=== PATIENT | male | born 1970 | race Caucasian/White ===

== ENCOUNTER 2017-03-16 14:31 | Emergency (ER) | payer OTHER, MEDICAID ==
[2017-03-16 15:02] VITALS: BP 165/99
--- NOTE | 2017-03-16 16:27 | XRAY Preliminary Report ---
Exam: XR Elbow 3 View LT IMPRESSION: Normal elbow radiography. [facility] SITE ID: [id number]
--- NOTE | 2017-03-16 16:30 | XRAY Report ---
EXAM: LEFT ELBOW RADIOGRAPHY EXAM DATE: 03/16/2017 04:19 PM. CLINICAL HISTORY: Suspected left biceps tendon rupture. COMPARISON: None. TECHNIQUE: 3 views. FINDINGS: Bones: Normal. No fractures or bone lesions. Joints: Normal. No effusion. No subluxation. Soft Tissues: Normal. No soft tissue swelling. IMPRESSION: Normal elbow radiography. [facility] Referring Provider Line: [phone] SITE ID: [id number]
--- NOTE | 2017-03-16 16:38 | ED Physician Documentation ---
PD HPI UPPER EXT INJURY - Stated complaint Stated Complaint: LT ARM INJURY - Chief complaint Chief Complaint: Ext Problem - History obtained from History obtained from: Patient - History of Present Illness Location: Left, Arm Type of injury: Other (Lifting) Where injury occurred: Work Timing - onset: Today Timing - details: Abrupt onset Associated symptoms: No: Weakness, Numbness Similar symptoms before: Diagnosis (Past medical history is significant for right biceps tendon rupture and history of right patellar tendon rupture.) - Additonal information Additional information: The patient is a 46-year-old male who presents with discomfort in his left arm. He was lifting a heavy dust bin at work when he felt a pop in his left arm, and has had discomfort since that time, as well as a bulge in his proximal biceps muscle. He is concerned about biceps tendon rupture. His past history is significant for right biceps tendon rupture as well as right patellar tendon rupture. He denies the use of steroid medication, or any recent antibiotic therapy. Review of Systems Constitutional: denies: Fever Nose: denies: Congestion Respiratory: denies: Dyspnea, Cough GI: denies: Nausea, Vomiting Skin: denies: Rash Musculoskeletal: reports: Extremity pain (Left upper extremity.). denies: Neck pain, Back pain Neurologic: denies: Focal weakness, Numbness, Headache PD PAST MEDICAL HISTORY - Past Medical History Past Medical History: Yes Cardiovascular: High cholesterol Neuro: Head injury Endocrine/Autoimmune: None Psych: Anxiety Musculoskeletal: Other (Right biceps tendon rupture, and right patellar tendon rupture.) - Past Surgical History Past Surgical History: Yes Ortho: Shoulder arthroplasty, Other - Present Medications Home Medications: Ambulatory Orders Medication Instructions Recorded Confirmed HYDROcod/ACETAM 5/325 [Vicodin 1 - 2 ea PO Q6H PRN #20 tablet 03/16/17 5/325] Ibuprofen [Advil] 600 mg PO PRN PRN 03/16/17 03/16/17 Mometasone/Formoterol [Dulera 100 PRN PRN 03/16/17 Mcg/5 Mcg Inhaler] - Allergies Allergies/Adverse Reactions: Allergies Allergy/AdvReac Type Severity Reaction Status Date / Time No Known Drug Allergies Allergy Verified 07/01/14 17:07 - Social History Does the pt smoke?: No Smoking Status: Never smoker Does the pt drink ETOH?: Yes Does the pt have substance abuse?: No - Immunizations Immunizations are current?: Yes - POLST Patient has POLST: No PD ED PE NORMAL - Vitals Vital signs reviewed: Yes (initially hypertensive) - General General: Alert and oriented X 3, Well developed/nourished - HEENT HEENT: Atraumatic - Neck Neck: No bony TTP - Cardiac Cardiac: RRR - Respiratory Respiratory: No respiratory distress - Back Back: No spinal TTP - Derm Derm: No rash - Extremities Extremities: Other (There is proximal displacement of the left biceps muscle bulge, with mild tenderness to palpation of the distal biceps tendon insertion site. He has full range of motion of the left elbow and shoulder. Distal neurovascular is intact.) - Neuro Neuro: Alert and oriented X 3, No motor deficit, No sensory deficit Results - Vitals Vitals: Oxygen O2 Source Room air - Rads (name of study) Left elbow Radiology: Prelim report reviewed, EMP read contemporaneously, See rad report ( Normal elbow radiography.) PD MEDICAL DECISION MAKING - ED course Complexity details: considered differential, d/w patient, d/w senior staff consultant ED course: The patient's presentation is most consistent with a left distal biceps tendon rupture. It is not clear from physical examination whether it is a complete or partial tendon rupture. X-ray reveals no bony abnormality. MRI was not able to be obtained at this late hour on Sunday afternoon. I discussed his condition with Dr. Hernandez, product safety professional for orthopedic surgery. He advises placement of a posterior splint and arrangement for outpatient MRI prior to follow up visit in the orthopedic clinic. Treatment in the emergency department included administration of ibuprofen 800 mg orally. A posterior fiberglass splint was applied, as well as an arm sling. He is being discharged with prescription for Vicodin, 20 tablets. An order form for MRI of the left elbow was completed. I discussed with the patient the importance of the imaging study, urgent follow-up in the orthopedic clinic, as well as potentially worrisome signs or symptoms that should prompt reevaluation in the emergency department. A labor and industries form was completed. Departure - Departure Disposition: 01 Home, Self Care Clinical Impression: Biceps tendon rupture Qualifiers: Encounter type: initial encounter Laterality: left Qualified Code(s): S46.112A - Strain of muscle, fascia and tendon of long head of biceps, left arm, initial encounter Condition: Stable Instructions: Biceps Tendonitis Distal Follow-Up: [facility] [Provider Group] Prescriptions: HYDROcod/ACETAM 5/325 [Vicodin 5/325] 1 - 2 ea PO Q6H PRN #20 tablet PRN Reason: Pain Comments: Keep the splint clean and dry. Use the arm sling for comfort. You can use ibuprofen, up to 800 mg 3 times daily for its anti-inflammatory effect. You can use Vicodin as prescribed if needed for pain. Followup for MRI of your elbow and distal humerus on Sunday. Followup with orthopedics after the MRI has been performed. Return to the emergency department if you develop markedly increasing pain, or otherwise worsening symptoms. Discharge Date/Time: 03/16/17 18:02
[2017-03-16] MEDS ORDERED: IBUPROFEN 800 MG TABLET PO ONE (17:43)
[2017-03-16] MEDS: IBUPROFEN 800 MG TABLET PO STA (17:45)
== END 2017-03-16 18:02 | disposition home or self-care (01) ==
LOC: ED 14:31
DX: S46.212A Strain of muscle, fascia and tendon of other parts of biceps, left arm, initial encounter (principal); X50.0XXA Overexertion from strenuous movement or load, initial encounter; Y99.0 Civilian activity done for income or pay; E78.00 Pure hypercholesterolemia, unspecified
CPT/HCPCS: 1040M; 29105; 99282; 99283

== ENCOUNTER 2017-11-05 16:50 | Outpatient (CLI) | payer MEDICAID | END 2017-11-05 16:51 | disposition home or self-care (01) | LOC: RT.S 16:50 | PROVIDERS: ATTEND Nurse Practitioner Family | DX: R07.9 Chest pain, unspecified (principal) | CPT/HCPCS: 93005 ==

== ENCOUNTER 2017-11-07 13:13 | Outpatient (CLI) | payer MEDICAID ==
[2017-11-07 17:45] LABS: BASOPHILS % (AUTO) 0.7 %; EOSINOPHILS # (AUTO) 0.1 10^3/uL (0.0-0.7); EOSINOPHILS % (AUTO) 1.7 %; HGB - HEMOGLOBIN 14.3 g/dL (14.0-18.0); LYMPHOCYTES % (AUTO) 32.2 %; MEAN CORPUSCULAR HEMOGLOBIN 29.3 pg (27.0-31.0); MEAN CORPUSCULAR HGB CONC 34.8 g/dL (32.0-36.0); MEAN CORPUSCULAR VOLUME 84.4 fL (80.0-94.0); MEAN PLATELET VOLUME 8.7 fL (7.4-11.4); MONOCYTES # (AUTO) 0.5 10^3/uL (0.0-1.0); MONOCYTES % (AUTO) 8.2 %; NEUTROPHILS # (AUTO) 3.6 10^3/uL (1.5-6.6); NEUTROPHILS % (AUTO) 57.2 %; PLT - PLATELET COUNT 299 10^3/uL (130-450); RED BLOOD COUNT 4.88 10^6/uL (4.70-6.10); RED CELL DISTRIBUTION WIDTH 14.1 % (12.0-15.0); WHITE BLOOD COUNT 6.3 x10^3/uL (4.8-10.8)
[2017-11-07 18:10] LABS: ALBUMIN 4.7 g/dL (3.2-5.5); ALBUMIN/GLOBULIN RATIO 1.4 (1.0-2.2); ALKALINE PHOSPHATASE 51 IU/L (42-121); ALT ALANINE AMINOTRANSFERASE 28 IU/L (10-60); AST ASPARTATE AMINOTRANSFERASE 25 IU/L (10-42); BILIRUBIN,TOTAL 0.5 mg/dL (0.2-1.0); BUN - BLOOD UREA NITROGEN 13 mg/dL (6-20); CALCIUM 9.7 mg/dL (8.5-10.3); CARBON DIOXIDE - CO2 25 mmol/L (21-32); CHLORIDE 100 mmol/L (101-111); CHOL/HDL RATIO 7.1 (<5.0); CHOLESTEROL 320 mg/dL; CREATININE 1.1 mg/dL (0.6-1.2); GFR - MDRD 71 (>89); GLUCOSE 99 mg/dL (70-100); HDL CHOLESTEROL 45 mg/dL; SODIUM 136 mmol/L (135-145)
[2017-11-07 18:31] LABS: LDL CHOLESTEROL,DIRECT 200 mg/dL; LDLD/HDL RATIO 4.4 (<3.6)
== END 2017-11-07 13:14 | disposition home or self-care (01) ==
LOC: LAB.F 13:13
PROVIDERS: ATTEND Nurse Practitioner Family
DX: R07.9 Chest pain, unspecified (principal); E78.5 Hyperlipidemia, unspecified; R53.83 Other fatigue
CPT/HCPCS: 36415; 80053; 80061; 83721; 83880; 84443; 85025

== ENCOUNTER 2018-05-01 11:41 | Outpatient (CLI) | payer MEDICAID ==
--- NOTE | 2018-05-01 13:24 | XRAY Report ---
Procedure Date: 05/01/2018 Accession Number: [id number] / [id number] Procedure: XRS - Hand 3 View RT CPT Code: FULL RESULT: EXAM: Hand 3 View RT DATE: 05/01/2018 12:16 PM CLINICAL HISTORY: THUMB PAIN, RIGHT HAND COMPARISON: None. TECHNIQUE: 3 views. FINDINGS: Bones: Normal. No fractures or bone lesions. Joints: Normal. No subluxations. Soft Tissues: Normal. No soft tissue swelling. IMPRESSION: Normal hand radiography. [facility]
== END 2018-05-01 11:42 | disposition home or self-care (01) ==
LOC: DI.S 11:41
PROVIDERS: ATTEND Nurse Practitioner Family
DX: M79.644 Pain in right finger(s) (principal)

== ENCOUNTER 2019-05-29 11:16 | Emergency (ER) | payer MEDICAID ==
--- NOTE | 2019-05-29 12:21 | XRAY Report ---
Reason: pain Procedure Date: 05/29/2019 Accession Number: [id number] / [id number] Procedure: XR - Chest 1 View X-Ray CPT Code: 18339 FULL RESULT: EXAM: CHEST RADIOGRAPHY, ONE VIEW, PORTABLE EXAM DATE: 05/29/2019 12:08 PM. CLINICAL HISTORY: Chest pain, with shortness of breath for 2 weeks, in a 48-year-old male. COMPARISON: None. TECHNIQUE: 1201 hr. AP upright portable view. FINDINGS: Lungs/Pleura: No focal opacities evident. No pleural effusion. No pneumothorax. Satisfactory inspiratory effort. Mediastinum: Heart size normal, without pulmonary vascular congestion or adenopathy. Other: Trachea is midline. Osseous structures are unremarkable. IMPRESSION: Unremarkable chest for age and body size. No CHF or other demonstrated cause for the patient's symptoms. [facility]
[2019-05-29] MEDS ORDERED: ASPIRIN CHEW 81 MG TABLET PO STA (12:36)
[2019-05-29] MEDS ORDERED: METOPROLOL TARTRATE 50 MG TABLET PO STA ×2 (12:36→16:02)
[2019-05-29] MEDS ORDERED: ATORVASTATIN 40 MG TABLET PO STA (12:36)
--- NOTE | 2019-05-29 12:38 | ED Physician Documentation ---
PD HPI CHEST PAIN - Stated complaint Stated Complaint: CP - Chief complaint Chief Complaint: Cardiac - History obtained from History obtained from: Patient - History of Present Illness Timing - onset: Other (48-year-old gentleman with no known history of coronary disease but risk factors including modest obesity and cholesterol which he has said was in the 700s in the past. He was on a statin but stopped due to side effects. Over the last 10 days or so he has had central chest burning that radiates is a dull ache to either side especially with almost any level of exertion even walking on flat ground. At rest it and it ends in a few minutes. When he has it he occasionally gets dizzy and slightly sweaty. No nausea.) Review of Systems Ten Systems: 10 systems reviewed and negative Constitutional: denies: Fever, Chills Throat: denies: Dental pain / toothache, Sore throat Cardiac: reports: Chest pain / pressure. denies: Palpitations, Pedal edema, Calf pain Respiratory: denies: Dyspnea, Cough, Hemoptysis, Wheezing PD PAST MEDICAL HISTORY - Past Medical History Cardiovascular: High cholesterol Endocrine/Autoimmune: None Psych: Anxiety Musculoskeletal: Other - Past Surgical History Past Surgical History: Yes Ortho: Shoulder arthroplasty, Other - Present Medications Home Medications: Ambulatory Orders Medication Instructions Recorded Confirmed HYDROcod/ACETAM 5/325 [Vicodin 1 - 2 ea PO Q6H PRN #20 tablet 03/16/17 5/325] Ibuprofen [Advil] 600 mg PO PRN PRN 03/16/17 03/16/17 Mometasone/Formoterol [Dulera 100 PRN PRN 03/16/17 Mcg/5 Mcg Inhaler] - Allergies Allergies/Adverse Reactions: Allergies Allergy/AdvReac Type Severity Reaction Status Date / Time No Known Drug Allergies Allergy Verified 07/01/14 17:07 - Social History Does the pt smoke?: No Smoking Status: Never smoker Does the pt drink ETOH?: Yes Does the pt have substance abuse?: No - Family History Family history: reports: CAD (Some second-degree family members with coronary disease, it does not sound like anything terribly early. His recollection of this is not great.) - Immunizations Immunizations are current?: Yes - POLST Patient has POLST: No PD ED PE NORMAL - Vitals Vital signs reviewed: Yes - General General: Alert and oriented X 3, No acute distress - HEENT HEENT: PERRL, EOMI - Neck Neck: Supple, no meningeal sign, No bony TTP - Cardiac Cardiac: RRR, No murmur - Respiratory Respiratory: No respiratory distress, Clear bilaterally - Abdomen Abdomen: Soft, Non tender - Back Back: No CVA TTP, No spinal TTP - Derm Derm: Normal color, Warm and dry - Extremities Extremities: No edema, No calf tenderness / cord - Neuro Neuro: Alert and oriented X 3, Normal speech Results - Vitals Vitals: Vital Signs - 24 hr 05/29/19 05/29/19 05/29/19 11:32 13:38 16:09 Temperature 36.3 C L Heart Rate 87 65 64 Respiratory 20 16 12 Rate Blood Pressure 142/76 H 129/78 164/91 H O2 Saturation 96 98 99 05/29/19 18:09 Temperature Heart Rate 60 Respiratory 12 Rate Blood Pressure 145/99 H O2 Saturation 97 Oxygen O2 Source Room air - EKG (time done) 1135 Rate: Rate (enter#) (80) Rhythm: NSR Haworth: Normal QRS: Low voltage Ischemia: Non specific changes. No: ST elevation c/w ischemia, ST depression Computer interpretation: Agree with computer - Labs Labs: Laboratory Tests 05/29/19 05/29/19 05/29/19 12:42 12:42 12:42 WBC 7.9 RBC 4.79 Hgb 14.4 Hct 42.1 MCV 87.9 MCH 30.1 MCHC 34.2 RDW 13.2 Plt Count 259 MPV 9.6 Neut # (Auto) 5.2 Lymph # (Auto) 1.9 [place] # (Auto) 0.6 Eos # (Auto) 0.1 Baso # (Auto) 0.1 Absolute Nucleated RBC 0.00 Nucleated RBC % 0.0 Sodium 137 Potassium 3.9 Chloride 100 L Carbon Dioxide 26 Anion Gap 11.0 BUN 19 Creatinine 1.1 Estimated GFR (MDRD) 71 L Glucose 102 H Calcium 9.9 Total Bilirubin 0.6 AST 37 ALT 52 Alkaline Phosphatase 57 Troponin I High Sens Total Protein 7.9 Albumin 4.4 Globulin 3.5 Albumin/Globulin Ratio 1.3 Triglycerides 967 H Cholesterol 340 H LDL Cholesterol Direct 138 H LDL Cholesterol, Calc Not Reportable VLDL Cholesterol Not Reportable HDL Cholesterol 44 L LDL/HDL Ratio Not Reportable dLDL/HDL Ratio 3.1 Cholesterol/HDL Ratio 7.7 Lipase 36 05/29/19 12:42 WBC RBC Hgb Hct MCV MCH MCHC RDW Plt Count MPV Neut # (Auto) Lymph # (Auto) [place] # (Auto) Eos # (Auto) Baso # (Auto) Absolute Nucleated RBC Nucleated RBC % Sodium Potassium Chloride Carbon Dioxide Anion Gap BUN Creatinine Estimated GFR (MDRD) Glucose Calcium Total Bilirubin AST ALT Alkaline Phosphatase Troponin I High Sens 3.9 Total Protein Albumin Globulin Albumin/Globulin Ratio Triglycerides Cholesterol LDL Cholesterol Direct LDL Cholesterol, Calc VLDL Cholesterol HDL Cholesterol LDL/HDL Ratio dLDL/HDL Ratio Cholesterol/HDL Ratio Lipase PD MEDICAL DECISION MAKING - ED course ED course: 48-year-old gentleman with new and typical angina. This is quite concerning. His EKG is nonischemic and his initial troponin was negative. I spoke with Dr. Connor who took him for stress. She notes that on exercise stress test he only made about a minute on exercise before he developed angina and she was quite concerned because he dropped his blood pressure during stress which is an atypical response suggesting major or multivessel disease. The nuclear images only demonstrated a small focus of mild inferoapical ischemia but given the typical nature of his pain I discussed this with the patient and recommended transfer for potentially an early interventional approach. He requested [facility] and they were called at 6:40 PM. Spoke with Adilene Tirado, [facility] who agrees with transfer, defers to hospitalist service for the transfer, but likely catheterization tomorrow. Recommends no heparin or Plavix at this juncture.Does agree with the administration of high-dose atorvastatin which was already given, 80 mg here. Also recommended screening for pancreatitis, this was already been done on original labs with a normal lipase. Accepted by Dr Cruz at 1920 and cobras were completed. Departure - Departure Disposition: 02 Transfer Acute Care Hosp Clinical Impression: Unstable angina, Hypertriglyceridemia Condition: Serious
[2019-05-29 12:54] LABS: BASOPHILS # (AUTO) 0.1 10^3/uL (0.0-0.1); BASOPHILS % (AUTO) 0.8 %; EOSINOPHILS # (AUTO) 0.1 10^3/uL (0.0-0.7); EOSINOPHILS % (AUTO) 1.6 %; HGB - HEMOGLOBIN 14.4 g/dL (14.0-18.0); LYMPHOCYTES # (AUTO) 1.9 10^3/uL (1.5-3.5); LYMPHOCYTES % (AUTO) 24.4 %; MEAN CORPUSCULAR HEMOGLOBIN 30.1 pg (27.0-31.0); MEAN CORPUSCULAR HGB CONC 34.2 g/dL (32.0-36.0); MEAN CORPUSCULAR VOLUME 87.9 fL (80.0-94.0); MEAN PLATELET VOLUME 9.6 fL (7.4-11.4); MONOCYTES # (AUTO) 0.6 10^3/uL (0.0-1.0); MONOCYTES % (AUTO) 7.2 %; NEUTROPHILS # (AUTO) 5.2 10^3/uL (1.5-6.6); NEUTROPHILS % (AUTO) 65.6 %; PLT - PLATELET COUNT 259 10^3/uL (130-450); RED BLOOD COUNT 4.79 10^6/uL (4.70-6.10); RED CELL DISTRIBUTION WIDTH 13.2 % (12.0-15.0); WHITE BLOOD COUNT 7.9 x10^3/uL (4.8-10.8)
[2019-05-29 13:12] LABS: ALBUMIN 4.4 g/dL (3.2-5.5); ALBUMIN/GLOBULIN RATIO 1.3 (1.0-2.2); BILIRUBIN,TOTAL 0.6 mg/dL (0.2-1.0); CALCIUM 9.9 mg/dL (8.5-10.3); CREATININE 1.1 mg/dL (0.6-1.2); TOTAL PROTEIN 7.9 g/dL (6.7-8.2)
[2019-05-29 13:36] LABS: CHOL/HDL RATIO 7.7 (<5.0); CHOLESTEROL 340 mg/dL; HDL CHOLESTEROL 44 mg/dL
[2019-05-29 13:57] LABS: LDL CHOLESTEROL,DIRECT 138 mg/dL; LDLD/HDL RATIO 3.1 (<3.6)
--- NOTE | 2019-05-29 18:14 | Nuclear Medicine Report ---
Reason: chest pain, typical Procedure Date: 05/29/2019 Accession Number: [id number] / [id number] Procedure: NM - Myocardial Perfusion STR/RST CPT Code: FULL RESULT: EXAM: Myocardial Perfusion Stress and Rest Exam EXAM DATE: 05/29/2019 05:05 PM. CLINICAL HISTORY: Chest pain, typical. COMPARISON: None. TECHNIQUE: Patient given 10.2 mCi Tc99m myoview i.v. for the rest portion of the exam. Nongated cardiac SPECT imaging performed with multiplanar reformats. After an appropriate delay, patient exercised on a treadmill protocol for 2:06, achieving a maximum HR of 121 bpm. Near peak exercise, patient given 39.9 mCi technetium 99m Myoview IV. Cardiac gated SPECT scintigraphy performed multiplanar reformats, wall motion analysis and left ventricular ejection fraction estimation. FINDINGS: There is a small focus of mild increased activity in the inferior apical wall on stress which normalizes on rest. Otherwise, there is uniform activity in the left trigger myocardium on stress and rest. Wall motion is uniform. Left ventricular ejection fraction estimated at 61%. IMPRESSION: 1. Small focus of mild inferoapical ischemia. 2. Left ventricular ejection fraction estimated at 61%. [facility]
--- NOTE | 2019-05-29 18:23 | CARDIAC PROCEDURE NOTE ---
DATE OF SERVICE: 05/29/2019 Physician: Elizabeth Connor MD INDICATION: Chest pain. CARDIAC RISK FACTORS: Family history of heart disease, uses chewing tobacco, untreated severe hypercholesterolemia and hypertriglyceridemia, male gender. DESCRIPTION OF PROCEDURE: After signing informed consent, the patient underwent a Trent-protocol treadmill stress test with nuclear myocardial perfusion imaging. The patient exercised for 1 minute on a Trent-protocol treadmill stress test and started to develop his typical chest pain, which he called "burning." He rated it a 2/10 and was able to exercise for approximately 45 more seconds and the chest "burning" reached 4/10. The chest pain resolved after 3 minutes of recovery. The patient also had moderate to severe shortness of breath with this exertion. Oxygen saturation was 98% on room air at peak exercise and in recovery. RESTING BLOOD PRESSURE: 140/65. PEAK BLOOD PRESSURE: 121/80. RESTING HEART RATE: 72. PEAK HEART RATE: 121 (71% predicted maximum heart rate for age). Patient had a normal heart rate response, abnormal blood pressure response to exercise. RESTING EKG: Normal sinus rhythm, LVH voltage. EKG AT PEAK: New ST depressions of 0.5 mm in leads V5 and V6. These resolved after approximately 5 minutes of recovery. SUMMARY: 1. Poor exercise tolerance related to onset of chest pain and shortness of breath. 2. Abnormal hemodynamic response to exercise, which is concerning for left main or 3-vessel coronary artery disease. 3. Borderline abnormal ST segment changes with exercise at a low level of stress are seen. 4. Nuclear images reported separately. I spoke to Dr. Clark in the ER in person regarding this portion of the test, advising coronary angiography. TD: 05/29/2019 18:14 MTDD
[2019-05-29 20:03] VITALS: BP 141/59
== END 2019-05-29 21:45 | disposition short-term general hospital (02) ==
LOC: ED 11:16
DX: I20.0 Unstable angina (principal); E78.1 Pure hyperglyceridemia
CPT/HCPCS: 36415; 71045; 78452; 80053; 80061; 83690; 83721; 84484; 85025; 93005; 93017; 99284; 99285; A9270; A9500

== ENCOUNTER 2019-07-15 10:53 | Outpatient (CLI) | payer MEDICAID ==
[2019-07-15 18:15] LABS: ALBUMIN 4.8 g/dL (3.2-5.5); ALBUMIN/GLOBULIN RATIO 1.7 (1.0-2.2); ALKALINE PHOSPHATASE 55 IU/L (42-121); ALT ALANINE AMINOTRANSFERASE 32 IU/L (10-60); AST ASPARTATE AMINOTRANSFERASE 29 IU/L (10-42); BILIRUBIN,TOTAL 0.6 mg/dL (0.2-1.0); BUN - BLOOD UREA NITROGEN 20 mg/dL (6-20); CALCIUM 9.3 mg/dL (8.5-10.3); CARBON DIOXIDE - CO2 26 mmol/L (21-32); CHLORIDE 104 mmol/L (101-111); CHOL/HDL RATIO 3.7 (<5.0); CHOLESTEROL 176 mg/dL; CREATININE 1.1 mg/dL (0.6-1.2); GFR - MDRD 71 (>89); GLUCOSE 109 mg/dL (70-100); HDL CHOLESTEROL 47 mg/dL; LDL CHOLESTEROL,CALCULATED 86 mg/dL; LDL/HDL RATIO 1.8 (<3.6); SODIUM 140 mmol/L (135-145); TOTAL PROTEIN 7.7 g/dL (6.7-8.2); VLDL CHOLESTEROL 43 mg/dL
== END 2019-07-15 10:54 | disposition home or self-care (01) ==
LOC: LAB.S 10:53
PROVIDERS: ATTEND Internal Medicine
DX: E78.5 Hyperlipidemia, unspecified (principal)
CPT/HCPCS: 36415; 80053; 80061; 83721

== ENCOUNTER 2022-12-10 20:02 | Outpatient (CLI) | payer MEDICARE, MEDICAID | END 2022-12-10 23:45 | disposition EMS.NT | LOC: EMS 20:02 | DX: S61.011A Laceration without foreign body of right thumb without damage to nail, initial encounter (principal); W10.9XXA Fall (on) (from) unspecified stairs and steps, initial encounter; Y92.009 Unspecified place in unspecified non-institutional (private) residence as the place of occurrence of the external cause ==

== ENCOUNTER 2022-12-12 17:43 | Emergency (ER) | payer MEDICARE, MEDICAID ==
[2022-12-12 17:51] VITALS: BP 160/90
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
--- OUTSIDE RECORDS SUMMARY | 2022-12-12 18:46 | EXTERNAL MEDICAL SUMMARY RPT | Continuity of Care Document ---
:1970 Author Organization [facility] Address [address] [place] [address] Phone Care Team Providers Name Role Phone Unavailable Unavailable Unavailable Md Veronique, Paetl, Eliz, Jakob Unavailable Unavailab le Allergies No information. Encounters No information. Functional Status No information. Immunizations No information. Medications date description facility 2022-12-12 00:00 ZOLPIDEM TARTRATE [facility] 2022-12-12 00:00 [facility]ium[facility]erol [facility] 2022-12-12 00:00 tiotropium bromide [facility] 2022-12-12 00:00 aspirin [facility] 2022-12-12 00:00 azithromycin [facility] 2022-12-12 00:00 ZOLPIDEM TARTRATE [facility] 2022-12-12 00:00 ipratropium-albuterol [facility] 2022-12-12 00:00 [facility]:00 tiotropium bromide [facility] 2022-12-12 00:00 tiotropium bromide [facility] 2022-12-12 00:00 amlodipine [facility] 2022-12-12 00:00 aspirin [facility] 2022-12-12 00:00 omeprazole [facility] 2022-12-12 00:00 citalopram [facility] 2022-12-12 00:00 amlodipine [facility] 2022-12-12 00:00 citalopram [facility] 2022-12-12 00:00 azithromycin [facility] 2022-12-12 00:00 amlodipine [facility] 2022-12-12 00:00 rosuvastatin [facility] 2022-12-12 00:00 tiotropium bromide [facility] 2022-12-12 00:00 ipratropium-albuterol [facility] 2022-12-12 00:00 omeprazole [facility] 2022-12-12 00:00 azithromycin [facility] 2022-12-12 00:00 citalopram [facility] 2022-12-12 00:00 citalopram [facility] 2022-12-12 00:00 citalopram [facility] 2022-12-12 00:00 citalopram [facility] 2022-12-12 00:00 citalopram [facility] 2022-12-12 00:00 amlodipine [facility] 2022-12-12 00:00 azithromycin [facility] 2022-12-12 00:00 ZOLPIDEM TARTRATE [facility] 2022-12-12 00:00 omeprazole [facility] 2022-12-12 00:00 aspirin [facility] 2022-12-12 00:00 omeprazole [facility] [place] 2022-12-12 00:00 rosuvastatin [facility] [place] 2022-12-12 00:00 citalopram [facility] [place] 2022-12-12 00:00 rosuvastatin [facility] [place] 2022-12-12 00:00 ZOLPIDEM TARTRATE [facility] [place] 2022-12-12 00:00 rosuvastatin [facility] [place] Problems date description facility 2022-12-12 00:00 Herpes simplex without mention of [facility] & complication [facility] 2022-12-12 00:00 Laceration of right thumb [facility] & [facility] 2022-12-12 00:00 Contusion of face [facility] 2022-12-12 00:00 Asthma [facility] 2022-12-12 00:00 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 [facility] 2022-12-12 00:00 Herpesvirus infection [facility] 2022-12-12 00:00 Other and unspecified [facility] & hyperlipidemia [facility] 2022-12-12 00:00 Dysthymic disorder [facility] 2022-12-12 00:00 Lateral epicondylitis of right [facility] & humerus [facility] 2022-12-12 00:00 Eczema [facility] 2022-12-12 00:00 Asthma, unspecified [facility] 2022-12-12 00:00 Hyperlipidemia [facility] 2022-12-12 00:00 Concussion with loss of [facility] & consciousness [facility] 2022-12-12 00:00 Contact dermatitis and other [facility] Primary Care & eczema, unspecified cause [facility] [place] 2022-12-12 00:00 Lateral epicondylitis [facility] 2022-12-12 00:00 Contusion of face, scalp, and neck [facility] & except eye(s) [facility] 2022-12-12 00:00 Herpesviral infection, unspecified [facility] 2022-12-12 00:00 Hyperlipidemia, unspecified [facility] 2022-12-12 00:00 Other specified anxiety disorders [facility] 2022-12-12 00:00 Unspecified asthma, uncomplicated [facility] 2022-12-12 00:00 Dermatitis, unspecified [facility] 2022-12-12 00:00 Lateral epicondylitis, right elbow [facility] 2022-12-12 00:00 Contusion of other part of head, [facility] Care & initial encounter [facility] 2022-12-12 00:00 Concussion with loss of [facility] & consciousness of 30 minutes or less, [facility] initial encounter 2022-12-12 00:00 Laceration without foreign body of [facility] & right thumb without damage to nail, [facility] initial encounter Procedures date description facility 2022-12-12 00:00 Visit Code Hold [facility] Results/Labs No information. Social History date description facility 2022-12-12 00:00 Never smoker [facility] Vital Signs date measurement value units 2022-12-12 00:00 BMI 35.93 kg/m2 2022-12-12 00:00 BP_diastolic 91 mmHg 2022-12-12 00:00 BP_systolic 158 mmHg 2022-12-12 00:00 heart_rate 98 /min 2022-12-12 00:00 height_metric 182.88 cm 2022-12-12 00:00 height_standard 72 in 2022-12-12 00:00 respiration_rate 17 /min 2022-12-12 00:00 temperature_metric 37.17 C 2022-12-12 00:00 temperature_standard 98.9 F 2022-12-12 00:00 weight_metric 119.75 kg 2022-12-12 00:00 weight_standard 264 lb
--- NOTE | 2022-12-12 18:49 | CT Report ---
PROCEDURE: CERVICAL SPINE WO INDICATIONS: neck pain s/p fall down concrete stairs 2 days ago TECHNIQUE: Noncontrast 3 mm thick sections acquired from the skull base to the T4 level. Sagittal and coronal r eformats were then constructed. For radiation dose reduction, the following was used: automated exp osure control, adjustment of mA and/or kV according to patient size. COMPARISON: CT cervical spine, 07/01/2014. FINDINGS: Image quality: Excellent. Bones: Loss of normal cervical lordosis. No fractures or dislocations. There is degenerative disc di sease, moderate at C5-C6, mild at the C6-C7 and C7-T1. There is bilateral facet arthropathy, most pro nounced and moderate at C3-C4 on the right. Moderate atlantoaxial joint degeneration. Trace retrolist hesis of C5 on C6. Visualized superior ribs are intact. Soft tissues: Prevertebral soft tissues are normal in thickness. No paravertebral hematomas. No ap ical pneumothoraces. IMPRESSION: 1. No cervical spine fracture. 2. Degenerative changes as described. Reviewed by: Troy Curran MD on 12/12/2022 5:48 PM AKGAR[facility] Approved by: Troy Curran MD on 12/12/2022 5:48 PM AKDT Station ID: [id number]
--- NOTE | 2022-12-12 18:56 | CT Report ---
PROCEDURE: MAXILLOFACIAL WO INDICATIONS: L face pain s/p fall down concrete stairs 2 days TECHNIQUE: Noncontrast 1.5 mm thick axial images acquired from the mandible through the frontal sinuses, with co larry and sagittal reformatting. For radiation dose reduction, the following was used: automated ex posure control, adjustment of mA and/or kV according to patient size. COMPARISON: None. FINDINGS: Image quality: Excellent. Bones and teeth: Orbital simmons are intact. Sinus simmons show no fracture or deformity. Minimally dis placed old left nasal bone fracture (series 2 image 115 and series 5 image 7). Nasal septum are intac t. Visualized portions of the mandible demonstrate no fractures or subluxation. Zygomatic arches ar e intact. Pterygoid plates are intact. Visualized portions of the skull base and auditory canals ar e intact. Sinuses: Paranasal sinuses are aerated, without fluid levels, mucosal thickening, or mucoceles. Mas toid air cells are aerated. Soft tissues: No edema, masses, or fluid collections. No enlarged lymph nodes. No soft tissue lace rations or debris. Vascular: Visualized vascular structures appear normal in the absence of contrast. Bony vascular fo ramina and canals are intact. IMPRESSION: 1. Minimally displaced left nasal bone fracture of indeterminate chronicity. Reviewed by: Troy Curran MD on 12/12/2022 5:55 PM CHAUNCE[facility] Approved by: Troy Curran MD on 12/12/2022 5:55 PM CHAUNCE[facility] Station ID: [id number]
--- NOTE | 2022-12-12 18:57 | CT Report ---
PROCEDURE: HEAD WO INDICATIONS: head pain s/p fall down concrete stairs 2 days ago TECHNIQUE: Noncontrast 4.5 mm thick angled axial sections acquired from the foramen magnum to the vertex. For r adiation dose reduction, the following was used: automated exposure control, adjustment of mA and/or kV according to patient size. COMPARISON: CT head without, 07/01/2014. FINDINGS: Image quality: Excellent. CSF spaces: Basal cisterns are patent. No extra-axial fluid collections. Ventricles are prominent but symmetrical in size and shape. Brain: No midline shift. No intracranial masses or hemorrhage. Mild cerebral volume loss. Rodriguez-whi te matter interface is normal. Skull and face: Calvarium and visualized facial bones are intact, without suspicious lesions. Sinuses: Visualized sinuses and mastoids are clear. IMPRESSION: No acute intracranial abnormalities. Reviewed by: Troy Curran MD on 12/12/2022 5:56 PM AKGAR[facility] Approved by: Troy Curran MD on 12/12/2022 5:56 PM AKDT Station ID: [id number]
== END 2022-12-12 19:15 | disposition home or self-care (01) ==
LOC: ED 17:43
DX: S09.90XA Unspecified injury of head, initial encounter (principal); S00.83XA Contusion of other part of head, initial encounter; S02.2XXA Fracture of nasal bones, initial encounter for closed fracture; W10.9XXA Fall (on) (from) unspecified stairs and steps, initial encounter; E78.00 Pure hypercholesterolemia, unspecified; Z79.899 Other long term (current) drug therapy
CPT/HCPCS: 99283; 99284